=== PATIENT | female | born 1995 | race Caucasian/White ===

== ENCOUNTER → 2023-04-21 09:16 | Outpatient (BNVA) | payer MEDICAID, SELFPAY | PROVIDERS: Visit Provider Family Medicine Adult Medicine | DX: H53.8 Other visual disturbances (principal); R35.89 Other polyuria; R63.1 Polydipsia; Q24.8 Other specified congenital malformations of heart | CPT/HCPCS: 80053; 80061; 83036; 84443; 85025 ==

== ENCOUNTER → 2025-04-03 09:24 | Outpatient (BNVA) | payer SELFPAY | PROVIDERS: Visit Provider Obstetrics & Gynecology | DX: Z01.419 Encounter for gynecological examination (general) (routine) without abnormal findings (principal); Z12.4 Encounter for screening for malignant neoplasm of cervix | CPT/HCPCS: 80053; 83036; 84443; 85025; 87624 ==

== ENCOUNTER → 2025-04-16 08:54 | Outpatient (BNVA) | payer SELFPAY | PROVIDERS: Visit Provider Obstetrics & Gynecology | DX: R10.2 Pelvic and perineal pain (principal) | CPT/HCPCS: 76830 ==